=== PATIENT | female | born 1995 | race Caucasian/White ===

== ENCOUNTER 2020-03-14 13:48 | Emergency (ER) | payer SELFPAY ==
--- NOTE | 2020-03-14 14:22 | ER Document Report ---
ED Medical Screen (RME) - General Chief Complaint: Vaginal Pain Stated Complaint: VAGINAL PAIN/BLEEDING Time Seen by Provider: 03/14/20 14:16 Mode of Arrival: Ambulatory Information source: Patient Notes: HPI; 24-year-old female no previous medical problems presents to the emergency room complaining of vaginal pain for approximately a month states she started noticing bleeding from her clitoris yesterday intermittent dysuria for the past month. Also complains of intermittent vaginal discharge. Denies any fevers. Denies any pelvic pain. Denies any change in sexual partners PE: Alert and oriented x3. Mild distress noted. Lungs clear to auscultation without rales,rhonchi, wheezes. Heart regular rate and rhythm without murmurs ,rubs, gallops. I have greeted and performed a rapid initial assessment of this patient. A comprehensive ED assessment and evaluation of the patient, analysis of test results and completion of the medical decision making process will be conducted by additional ED providers. I have specifically instructed the patient or family members with the patient to immediately return to any nursing staff should anything change in the patient's condition or with their chief complaint. TRAVEL OUTSIDE OF THE [place] IN LAST 30 DAYS: No - Related Data Allergies/Adverse Reactions: No Known Allergies Allergy (Unverified 03/14/20 14:14) Physical Exam - Vital signs Vitals: Temp Pulse Resp BP Pulse Ox 98.8 F 90 16 132/69 H 97 03/14/20 13:53 03/14/20 13:53 03/14/20 13:53 03/14/20 13:53 03/14/20 13:53 Course - Vital Signs Vital signs: Temp Pulse Resp BP Pulse Ox 98.8 F 90 16 132/69 H 97 03/14/20 13:53 03/14/20 13:53 03/14/20 13:53 03/14/20 13:53 03/14/20 13:53
[2020-03-14 14:59] LABS: APPEARANCE,URINE CLOUDY; BILIRUBIN,URINE NEGATIVE (NEGATIVE); GLUCOSE, URINE NEGATIVE (NEGATIVE); KETONES,URINE NEGATIVE (NEGATIVE); LEUKOCYTE ESTERASE,URINE LARGE (NEGATIVE); NITRITE,URINE NEGATIVE (NEGATIVE); PROTEIN,URINE NEGATIVE (NEGATIVE); URINE SPECIFIC GRAVITY 1.019; UROBILINOGEN,URINE NEGATIVE mg/dL (<2.0)
[2020-03-14 15:00] LABS: COLOR,URINE YELLOW
[2020-03-14] MEDS ORDERED: CEFTRIAXONE INJ 1000 MG VIAL IM ONE (15:42)
[2020-03-14] MEDS ORDERED: LIDOCAINE 1% INJ (10 MG/ML) 10 ML MDV INJ ONE (15:42)
[2020-03-14] MEDS ORDERED: AZITHROMYCIN 250 MG TABLET PO ONE (15:43)
--- NOTE | 2020-03-14 15:44 | ER Document Report ---
HPI - HPI Patient complains to provider of: Vaginal discharge Time Seen by Provider: 03/14/20 14:16 Onset: Other - 1 Month Onset/Duration: Persistent Quality of pain: Achy Pain Level: 2 Context: Patient presents complaining of vaginal pain with discharge for the past month. Patient is concerned about possible UTI and possible STD. Patient denies any fever nausea or vomiting. Associated Symptoms: denies: Fever, Nausea, Vomiting Exacerbated by: Denies Relieved by: Denies Similar symptoms previously: No Recently seen / treated by doctor: No - ROS ROS below otherwise negative: Yes Systems Reviewed and Negative: Yes All other systems reviewed and negative - CONSTITUTIONAL Constitutional: DENIES: Fever, Chills - EENT EENT: DENIES: Sore Throat - GASTROINTESTINAL Gastrointestinal: DENIES: Abdominal Pain, Nausea, Patient vomiting - URINARY Urinary: REPORTS: Dysuria. DENIES: Urgency, Frequency - REPRODUCTIVE Reproductive: REPORTS: Abnormal bleeding / discharge - MUSCULOSKELETAL Musculoskeletal: DENIES: Back Pain - DERM Skin Color: Normal Skin Problems: None Past Medical History - General Information source: Patient - Social History Smoking Status: Former Smoker Chew tobacco use (# tins/day): No Frequency of alcohol use: Occasional Drug Abuse: None Occupation: [employer] Family History: Reviewed & Not Pertinent Patient has homicidal ideation: No - Medical History Medical History: Negative Surgical Hx: Negative Vertical Provider Document - CONSTITUTIONAL Agree With Documented VS: Yes Exam Limitations: No Limitations General Appearance: WD/WN, No Apparent Distress - INFECTION CONTROL TRAVEL OUTSIDE OF THE [place] IN LAST 30 DAYS: No - HEENT HEENT: Atraumatic, Normocephalic - NECK Neck: Normal Inspection, Supple. negative: Lymphadenopathy-Left, Lymphadenopathy-Right - RESPIRATORY Respiratory: Breath Sounds Normal, No Respiratory Distress - CARDIOVASCULAR Cardiovascular: Regular Rate, Regular Rhythm - GI/ABDOMEN Gastrointestinal: Abdomen Soft, Abdomen Non-Tender, No Organomegaly, Normal Bowel Sounds - REPRODUCTIVE Female Genitalia: Abnormal Inspection. negative: CMT, Adnexal Pain-Right, Adnexal Pain-Left Notes: Large amount of yellow-green vaginal discharge, no cervical motion tenderness, no trauma or open wounds noted to the vulvar RN Kiera as standby - BACK Back: Normal Inspection. negative: CVA Tenderness-Right, CVA Tenderness-Left - MUSCULOSKELETAL/EXTREMETIES Musculoskeletal/Extremeties: LEYDI ALBERT - NEURO Level of Consciousness: Awake, Alert, Appropriate Motor/Sensory: No Motor Deficit - DERM Integumentary: Warm, Dry, No Rash Course - Re-evaluation Re-evalutation: 03/14/20 16:57 Patient with UTI and bacterial vaginosis. Patient does have vaginal discharge which she was treated empirically for gonorrhea and chlamydia. Cultures are pending at this time. Patient without any cervical motion tenderness, no concern for PID at this time. Abdomen is soft, patient nontoxic in appearance and stable for discharge. - Vital Signs Vital signs: Temp Pulse Resp BP Pulse Ox 98.8 F 90 16 132/69 H 97 03/14/20 14:15 03/14/20 13:53 03/14/20 13:53 03/14/20 13:53 03/14/20 13:53 - Laboratory Laboratory results interpreted by me: 03/14/20 14:30 Ur Leukocyte Esterase LARGE H 03/14/20 16:57 Labs- All tests 24 hr 03/14/20 03/14/20 14:30 15:35 Urine Color YELLOW Urine Appearance CLOUDY Urine pH 5.0 Ur Specific [place] 1.019 Urine Protein NEGATIVE Urine Glucose (UA) NEGATIVE Urine Ketones NEGATIVE Urine Blood NEGATIVE Urine Nitrite NEGATIVE Urine Bilirubin NEGATIVE Urine Urobilinogen NEGATIVE Ur Leukocyte Esterase LARGE H Urine WBC (Auto) 19 Urine RBC (Auto) 2 Squamous Epi Cells Auto 2 Urine Mucus (Auto) RARE Urine Ascorbic Acid NEGATIVE Urine HCG, Qual NEGATIVE Epi Cells (Wet Prep) 3+ EPITHELIALS SEEN Bacteria (Wet Prep) 4+ BACTERIA SEEN Trichomonas (Wet Prep) NO TRICHOMONAS SEEN Vaginal WBC 3+ WBCS SEEN Vaginal RBC FEW RBCS SEEN Vaginal Yeast BUDDING YEAST SEEN Discharge - Discharge Clinical Impression: Vaginal discharge, Bacterial vaginosis, Yeast vaginitis UTI (urinary tract infection) Qualifiers: Urinary tract infection type: site unspecified Hematuria presence: without hematuria Qualified Code(s): N39.0 - Urinary tract infection, site not specified Condition: Stable Disposition: HOME, SELF-CARE Instructions: Azithromycin ([facility]), Cephalexin ([facility]), Metronidazole ([facility]), Rocephin ([facility]), Urinary Tract Infection ([facility]), Vaginal Yeast Infection ([facility]), V aginosis, Bacterial ([facility]) Additional Instructions: Return immediately for any new or worsening symptoms Followup with your primary care provider, call tomorrow to make a followup appointment Cultures are pending, we will call if you need any different treatment Prescriptions: Fluconazole [Diflucan] 150 mg PO ONCE #1 tablet Metronidazole [Flagyl 500 mg Tablet] 500 mg PO BID #14 tablet Cephalexin Monohydrate [Keflex 500 mg Capsule] 500 mg PO BID 4 Days #8 capsule Referrals: [facility] [Provider Group] - Follow up as needed [facility] [Provider Group] - Follow up as needed
[2020-03-14 15:56] LABS: BACTERIA (WET MOUNT) 4+ BACTERIA SEEN; RBCS (WET MOUNT) FEW RBCS SEEN; T.VAGINALIS (WET MOUNT) NO TRICHOMONAS SEEN; WBCS (WET MOUNT) 3+ WBCS SEEN; YEAST (WET MOUNT) BUDDING YEAST SEEN
[2020-03-14 15:57] LABS: EPITHELIALS (WET MOUNT) 3+ EPITHELIALS SEEN
[2020-03-14 17:14] VITALS: BP 108/59
[2020-03-14 17:34] LABS: CHLAM PCR NOT DETECTED (NOT DETECT)
== END 2020-03-14 17:12 | disposition home or self-care (01) ==
LOC: ER 13:48
DX: N76.0 Acute vaginitis (principal); B96.89 Other specified bacterial agents as the cause of diseases classified elsewhere; B37.3 Candidiasis of vulva and vagina; N39.0 Urinary tract infection, site not specified; Z20.2 Contact with and (suspected) exposure to infections with a predominantly sexual mode of transmission; Z87.891 Personal history of nicotine dependence
CPT/HCPCS: 99283; 96372; 36415; 87086; 87210; 81025; 87088; 81001; 87491; 87591; J0696; 87186

== ENCOUNTER 2020-09-05 13:17 | Emergency (ER) | payer SELFPAY ==
--- NOTE | 2020-09-05 14:27 | ER Document Report ---
ED Skin Rash/Insect Bite/Abscs - General Chief Complaint: Rash Stated Complaint: POSSIBLE RASH Time Seen by Provider: 09/05/20 13:47 Primary Care Provider: [facility] [Provider Group] - Follow up as needed Mode of Arrival: Ambulatory Information source: Patient Notes: Patient is a 24-year-old female comes emergency room complaining of a rash. Patient states that started this morning and noticed it when she first woke up. It is on her bilateral arms and left foot. She denies any known contact with any anything unusual. She has not changed soaps detergents close bedding etc. She states it is a kind of burning itchy feeling. She denies any shortness of breath or chest pain. Patient has never had an allergic reaction in the past. She denies any other medical problems. Last menstrual period currently started today. Patient does admit to vaping. TRAVEL OUTSIDE OF THE [place] IN LAST 30 DAYS: No - HPI Patient complains to provider of: Skin rash/lesion Onset: This morning Onset/Duration: Sudden Quality of pain: Burning Severity: Moderate Pain Level: 3 Skin Character: Rash Skin Temperature: Warm Quality of rash: Itchy, Burning Identify cause: No Exacerbated by: Denies Relieved by: Denies Similar symptoms previously: No Recently seen / treated by doctor: No - Related Data Allergies/Adverse Reactions: No Known Allergies Allergy (Unverified 03/14/20 14:14) Past Medical History - General Information source: Patient - Social History Smoking Status: Current Every Day Smoker Cigarette use (# per day): Yes - Vapes Chew tobacco use (# tins/day): No Smoking Education Provided: Yes Frequency of alcohol use: None Drug Abuse: None Lives with: Family Family History: Reviewed & Not Pertinent Review of Systems - Review of Systems Constitutional: No symptoms reported EENT: No symptoms reported Cardiovascular: No symptoms reported Respiratory: No symptoms reported Gastrointestinal: No symptoms reported Genitourinary: No symptoms reported Female Genitourinary: No symptoms reported Musculoskeletal: No symptoms reported Skin: See HPI, Rash Hematologic/Lymphatic: No symptoms reported Neurological/Psychological: No symptoms reported Physical Exam - Vital signs Vitals: Temp Pulse Resp BP Pulse Ox 98.5 F 69 16 108/57 L 100 09/05/20 14:33 09/05/20 14:33 09/05/20 14:33 09/05/20 14:33 09/05/20 14:33 Interpretation: Normal - Notes Notes: PHYSICAL EXAMINATION: GENERAL: Well-appearing, well-nourished and in no acute distress. HEAD: Atraumatic, normocephalic. EYES: Pupils equal round and reactive to light, extraocular movements intact, conjunctiva are normal. ENT: Nares patent, oropharynx clear without exudates. Moist mucous membranes. Examination of the oral cavity also shows it to be nonerythematous no swelling of the tongue or lips. Airway is patent. NECK: Normal range of motion, supple without lymphadenopathy LUNGS: Breath sounds clear to auscultation bilaterally and equal. No wheezes rales or rhonchi. HEART: Regular rate and rhythm without murmurs Musculoskeletal: Normal range of motion, no pitting or edema. No cyanosis. Cranial nerves grossly intact. Normal speech, normal gait. Normal sensory, motor exams PSYCH: Normal mood, normal affect. SKIN: Examination patient very concerned as her arms bilaterally and her left foot. Patient has a very vague faint macular rash that is nonblanching nonsandpapery feeling. It encompasses front of the shoulder down to the and dorsal aspect. On both sides. There is a small area of patches on her left ankle and foot. Course - Re-evaluation Re-evalutation: 09/05/20 14:26 Patient's presentation is 1 of a dermatitis/contact/reaction will place her on a steroid taper from Pepcid and Benadryl. - Vital Signs Vital signs: Temp Pulse Resp BP Pulse Ox 98.5 F 69 16 108/57 L 100 09/05/20 14:33 09/05/20 14:33 09/05/20 14:33 09/05/20 14:33 09/05/20 14:33 Discharge - Discharge Clinical Impression: Dermatitis Allergic reaction Qualifiers: Encounter type: initial encounter Qualified Code(s): T78.40XA - Allergy, unspecified, initial encounter Condition: Stable Disposition: HOME, SELF-CARE Instructions: Acute Allergic Reaction ([facility]), Atopic Dermatitis (Eczema) ([facility]) Additional Instructions: Today home and stay cool. As we discussed you can take Benadryl 50 mg every 6 hours for itching. Be careful because this can make you sleepy. Also you can get some Pepcid/famotidine 20 mg [id number] take 1 tablet twice a day for the next 10 days. This helps to block histamine release the topical reaction. Take the steroids until finished. Return to ER should you experience any shortness of breath swelling of lips or tongue or any other concerns. Best to stay in a cool area today. Prescriptions: Methylprednisolone [Medrol Dosepack (4 mg/Tab) 21 Tab/Dosepak] 21 tab PO ASDIR PRN #1 dspk PRN Reason: Forms: Smoking Cessation Education Referrals: [facility] [Provider Group] - Follow up as needed
[2020-09-05 14:34] VITALS: BP 108/57
== END 2020-09-05 14:50 | disposition home or self-care (01) ==
LOC: ER 13:17
DX: L23.9 Allergic contact dermatitis, unspecified cause (principal); F17.290 Nicotine dependence, other tobacco product, uncomplicated
CPT/HCPCS: 99283